=== PATIENT | female | born 1975 | race Caucasian/White ===

== ENCOUNTER 2022-08-30 11:25 | Emergency (ER) | payer OTHER ==
[2022-08-30 11:52] VITALS: BP 138/88; PULSE 86; RESP 18; TEMP 98.4; BMI 33.3
[2022-08-30] MEDS ORDERED: predniSONE 20 MG TABLET (UD) PO ONE (13:57)
[2022-08-30] MEDS ORDERED: ALBUTEROL SO4 HFA INHALER IH ONE ×2 (13:58→14:30)
[2022-08-30] MEDS ORDERED: predniSONE 20 MG TABLET (UD) ONE ×2 (14:30→14:31)
== END 2022-08-30 15:18 | disposition home or self-care (01) ==
LOC: JER 11:25
DX: J20.9 Acute bronchitis, unspecified (principal)
CPT/HCPCS: 0241U-QW; 71046-TC-FY; 93005; 93010; 99285-25